=== PATIENT | female | born 1955 | race African-American/Black ===

== ENCOUNTER 2019-01-28 12:12 | Inpatient (IN) ==
[2019-01-28 12:59] LABS: Mean Corpuscular HGB Conc 29.6 g/dL (31.6-35.5); Mean Corpuscular Volume 87.7 fL (83.0-100.0)
[2019-01-28 13:07] LABS: Hematocrit 41.5 % (35.3-44.9); Hemoglobin 12.3 g/dL (11.5-15.4); Immature Platelets 2.7 % (1.1-6.1); Mean Platelet Volume 10.5 fL (9.4-12.4); Platelet Count 225 K/mcL (140-400); Red Blood Count 4.73 M/mcL (3.82-4.97); Red Cell Distribution Width 16.5 % (11.5-14.5); White Blood Count 16.5 K/mcL (4.3-11.1)
[2019-01-28 13:18] LABS: Calcium 9.1 mg/dL (8.6-10.3); Potassium 4.1 mEq/L (3.5-5.1)
[2019-01-28 13:26] LABS: Troponin I 0.04 ng/mL (< 0.04)
[2019-01-28 13:52] LABS: Eosinophils # 0.2 K/mcL (0.0-0.6); Lymphocytes # 0.7 K/mcL (0.6-4.6); Neutrophils # 15.7 K/mcL (1.6-8.9); Platelet Estimate Normal (Normal)
[2019-01-28 14:26] LABS: Bilirubin,Urine Negative (Negative); Blood,Urine Moderate (Negative); Color,Urine Yellow (Yellow); Glucose,Urine (UA) Normal (Normal); Ketones,Urine Negative (Negative); Leukocyte Esterase,Urine Moderate (Negative); Nitrite,Urine Negative (Negative); Protein,Urine 100 mg/dL (Neg-Trace); Specific Gravity,Urine 1.015 (1.010-1.025); Urobilinogen,Urine Normal (Normal)
[2019-01-28 14:27] LABS: Bacteria,Urine Moderate per hpf (None-Few); Squamous Epithelial Cell,Urine Many per lpf (None-Few)
[2019-01-28 14:30] LABS: Clarity,Urine Hazy (Clear)
[2019-01-28] MEDS ORDERED: cefTRIAXone 1,000 MG in 0.9 % Sodium Chloride Mini Bag 100 ML IVPB ONE (14:39)
[2019-01-28] MEDS ORDERED: 0.9 % Sodium Chloride 1,000 ML IVC ONE ×2 (14:44→14:45)
[2019-01-28 15:10] LABS: RBC,Urine 0-3 per hpf (0-3); WBC,Urine 30-50 per hpf (0-3)
[2019-01-28] MEDS ORDERED: Lidocaine -MPF 1% 5 ML AMPUL INFILT ONE (15:46)
[2019-01-28 16:07] LABS: Albumin 3.7 g/dL (3.5-5.7); Bilirubin,Direct 0.4 mg/dL (0.0-0.2); Bilirubin,Indirect 0.7 mg/dL (0.0-1.2); Bilirubin,Total 1.1 mg/dL (0.3-1.0); Globulin 3.7 g/dL (2.4-3.5); Total Protein 7.4 g/dL (6.4-8.9)
[2019-01-28] MEDS ORDERED: Mirtazapine 15 MG TABLET PO SCH (21:00)
[2019-01-28 21:03] LABS: Heparin anti-factor XA UFH 0.01 IU/mL (0.30-0.70); INR 1.5; Prothrombin Time 16.5 Seconds (9.4-12.1)
[2019-01-28 21:06] LABS: Activated Partial Thrombo Time 29.4 Seconds (26.0-36.0)
[2019-01-28] MEDS ORDERED: Acetaminophen 325 MG TABLET PO PRN (21:52)
[2019-01-28 23:14] LABS: Enterococcus by PCR Not Detected (Not Detect); Staphylococcus aureus by PCR Not Detected (Not Detect); Staphylococcus by PCR Not Detected (Not Detect); Streptococcus agalactiae(B)PCR Not Detected (Not Detect); Streptococcus by PCR Not Detected (Not Detect); Streptococcus pneumoniae PCR Not Detected (Not Detect); blaKPC Carbapenem-Resist Gene Not Detected (Not Detect)
[2019-01-28 23:15] LABS: Acinetobacter baumannii by PCR Not Detected (Not Detect); Candida albicans by PCR Not Detected (Not Detect); Candida glabrata by PCR Not Detected (Not Detect); Candida krusei by PCR Not Detected (Not Detect); Candida parapsilosis by PCR Not Detected (Not Detect); Candida tropicalis by PCR Not Detected (Not Detect); Enterobacter cloacae Cmplx PCR Not Detected (Not Detect); Escherichia coli by PCR DETECTED (Not Detect); Klebsiella oxytoca by PCR Not Detected (Not Detect); Klebsiella pneumoniae by PCR Not Detected (Not Detect); Proteus by PCR Not Detected (Not Detect); Pseudomonas aeruginosa by PCR Not Detected (Not Detect); Serratia marcescens by PCR Not Detected (Not Detect); Streptococcus pyogenes (A) PCR Not Detected (Not Detect)
[2019-01-29] MEDS ORDERED: Albumin 25% 25gram/100mL 25 GM/100 ML IV.SOLN IVPB ONE (04:28)
[2019-01-29] MEDS: *HR* Heparin 5,000 UNIT/ML VIAL SQ SCH ×2 (04:56→17:30)
[2019-01-29] MEDS ORDERED: Ondansetron 4 MG/2 ML VIAL ONE (07:12)
[2019-01-29] MEDS ORDERED: Ondansetron 4 MG/2 ML VIAL IVP ONE (07:16)
[2019-01-29] MEDS: Cholecalciferol (D-3) 1,000 UNIT (25MCG) TABLET PO SCH (07:52)
[2019-01-29] MEDS: Aspirin 325 MG TABLET PO SCH (07:52)
[2019-01-29] MEDS: Multivit/Ca/Min/Fe/FA 1 TAB TABLET PO SCH (07:52)
[2019-01-29] MEDS ORDERED: carvediloL 25 MG TABLET PO SCH (08:00)
[2019-01-29] MEDS ORDERED: Albumin 25% 25gram/100mL 100 GM/400 ML IV.SOLN ONE (09:00)
[2019-01-29] MEDS ORDERED: NON-FORMULARY MEDICATION 1 EACH EACH (Pravastatin Sodium [Pravachol] 40 MG) PO SCH (09:00)
[2019-01-29] MEDS ORDERED: Lisinopril 20 MG TABLET PO SCH (09:00)
[2019-01-29] MEDS ORDERED: cefTRIAXone 2,000 MG in Water for inj. (sterile) 20 ML IVP SCH (09:00)
[2019-01-29] MEDS ORDERED: Ringers Solution, Lactated 1,000 ML ONE (09:07)
[2019-01-29] MEDS ORDERED: Ringers Solution, Lactated 1,000 ML IVC ONE (09:09)
[2019-01-29] MEDS: Albumin 25% 25gram/100mL 25 GM/100 ML IV.SOLN IVPB SCH ×4 (09:14→09:33)
[2019-01-29] MEDS: Norepinephrine 4 MG in D5% in Water 250 ML IVC SCH ×3 (09:49→17:31)
[2019-01-29 10:02] LABS: Mean Platelet Volume 10.7 fL (9.4-12.4); Red Cell Distribution Width 16.9 % (11.5-14.5)
[2019-01-29 10:03] LABS: Hematocrit 29.9 % (35.3-44.9); Hemoglobin 8.9 g/dL (11.5-15.4); Mean Corpuscular HGB Conc 29.8 g/dL (31.6-35.5); Mean Corpuscular Hemoglobin 26.3 pg (28.0-33.3); Mean Corpuscular Volume 88.5 fL (83.0-100.0); Platelet Count 163 K/mcL (140-400); Red Blood Count 3.38 M/mcL (3.82-4.97); White Blood Count 29.3 K/mcL (4.3-11.1)
[2019-01-29 10:23] LABS: Calcium 8.5 mg/dL (8.6-10.3); Potassium 3.3 mEq/L (3.5-5.1)
[2019-01-29 10:32] LABS: Troponin I 0.05 ng/mL (< 0.04)
[2019-01-29] MEDS ORDERED: 0.9 % Sodium Chloride 1,000 ML ONE (10:36)
[2019-01-29 10:39] LABS: Lymphocytes # 0.6 K/mcL (0.6-4.6); Monocytes # 2.3 K/mcL (0.0-1.3); Neutrophils # 25.8 K/mcL (1.6-8.9); Platelet Estimate Normal (Normal)
[2019-01-29] MEDS: Hydrocortisone Sodium Succ 100 MG/2 ML VIAL IVP SCH ×3 (11:47→23:13)
[2019-01-29] MEDS: Vasopressin 40 UNIT in D5% in Water 100 ML IV SCH (12:05)
[2019-01-29] MEDS ORDERED: Perflutren Lipid Microsphere 1.3 ML in 0.9 % Sodium Chloride 8.7 ML IVP ONE (14:03)
[2019-01-29] MEDS: Mirtazapine 15 MG TABLET PO SCH (20:56)
[2019-01-30 04:54] LABS: Red Cell Distribution Width 17.1 % (11.5-14.5)
[2019-01-30 04:56] LABS: Hematocrit 34.2 % (35.3-44.9); Hemoglobin 10.2 g/dL (11.5-15.4); Mean Corpuscular HGB Conc 29.8 g/dL (31.6-35.5); Mean Corpuscular Hemoglobin 26.6 pg (28.0-33.3); Mean Corpuscular Volume 89.3 fL (83.0-100.0); Mean Platelet Volume 10.6 fL (9.4-12.4); Platelet Count 163 K/mcL (140-400); Red Blood Count 3.83 M/mcL (3.82-4.97)
[2019-01-30 05:08] LABS: ABG Base Excess -4 mEq/L (-2 to 3); ABG HCO3 25 mEq/L (21-27); ABG Oxygen Saturation 95 % (95-98); ABG PCO2 61 mmHg (35-45); ABG PH 7.22 pH Units (7.32-7.45); ABG PO2 94 mmHg (85-104); ABG TCO2 27 mEq/L (20-26)
[2019-01-30] MEDS: *HR* Heparin 5,000 UNIT/ML VIAL SQ SCH ×2 (05:17→18:19)
[2019-01-30] MEDS: Hydrocortisone Sodium Succ 100 MG/2 ML VIAL IVP SCH ×3 (05:18→18:23)
[2019-01-30 05:23] LABS: Albumin 4.1 g/dL (3.5-5.7); Albumin/Globulin Ratio 1.3 (1.1-2.2); Bilirubin,Total 0.6 mg/dL (0.3-1.0); Calcium 8.4 mg/dL (8.6-10.3); Globulin 3.2 g/dL (2.4-3.5); Potassium 4.7 mEq/L (3.5-5.1); Total Protein 7.3 g/dL (6.4-8.9)
[2019-01-30 05:31] LABS: Lymphocytes # 0.6 K/mcL (0.6-4.6); Monocytes # 1.2 K/mcL (0.0-1.3); Neutrophils # 28.2 K/mcL (1.6-8.9); Platelet Estimate Normal (Normal)
[2019-01-30] MEDS ORDERED: Cefepime HCl 2,000 MG in Water for inj. (sterile) 20 ML IVP SCH (06:00)
[2019-01-30 09:35] LABS: ABG Base Excess -3 mEq/L (-2 to 3); ABG HCO3 25 mEq/L (21-27); ABG Oxygen Saturation 99 % (95-98); ABG PCO2 59 mmHg (35-45); ABG PH 7.24 pH Units (7.32-7.45); ABG PO2 183 mmHg (85-104); ABG TCO2 27 mEq/L (20-26); Blood Gas Modality AVAPS; Blood Gas VT 500 cc
[2019-01-30] MEDS: Cholecalciferol (D-3) 1,000 UNIT (25MCG) TABLET PO SCH (09:49)
[2019-01-30] MEDS: Multivit/Ca/Min/Fe/FA 1 TAB TABLET PO SCH (09:49)
[2019-01-30] MEDS: Aspirin 325 MG TABLET PO SCH (09:49)
[2019-01-30] MEDS: Vasopressin 40 UNIT in D5% in Water 100 ML IV SCH (09:50)
[2019-01-30 11:32] LABS: Complement C3 134 mg/dL (87-200)
[2019-01-30 11:33] LABS: Uric Acid 9.8 mg/dL (2.3-7.6)
[2019-01-30] MEDS: Mirtazapine 15 MG TABLET PO SCH (20:14)
[2019-01-31] MEDS ORDERED: Ondansetron 4 MG/2 ML VIAL IVP ONE (03:17)
[2019-01-31 04:43] LABS: Hemoglobin 10.4 g/dL (11.5-15.4); Mean Corpuscular HGB Conc 30.1 g/dL (31.6-35.5)
[2019-01-31 04:44] LABS: Hematocrit 34.6 % (35.3-44.9); Mean Corpuscular Hemoglobin 26.4 pg (28.0-33.3); Mean Corpuscular Volume 87.8 fL (83.0-100.0); Mean Platelet Volume 11.2 fL (9.4-12.4); Platelet Count 150 K/mcL (140-400); Red Blood Count 3.94 M/mcL (3.82-4.97); Red Cell Distribution Width 16.8 % (11.5-14.5)
[2019-01-31 04:48] LABS: Albumin 3.7 g/dL (3.5-5.7); Calcium 8.6 mg/dL (8.6-10.3); Magnesium 2.3 mg/dL (1.6-2.6); Potassium 4.3 mEq/L (3.5-5.1)
[2019-01-31 05:04] LABS: White Blood Count 34.7 K/mcL (4.3-11.1)
[2019-01-31] MEDS: *HR* Heparin 5,000 UNIT/ML VIAL SQ SCH ×2 (05:52→17:49)
[2019-01-31] MEDS ORDERED: Cefepime HCl 2,000 MG in Water for inj. (sterile) 20 ML IVP SCH (06:00)
[2019-01-31] MEDS: Vasopressin 40 UNIT in D5% in Water 100 ML IV SCH (06:04)
[2019-01-31 06:33] LABS: Lymphocytes # 2.8 K/mcL (0.6-4.6); Monocytes # 2.1 K/mcL (0.0-1.3); Neutrophils # 29.8 K/mcL (1.6-8.9); Platelet Estimate Normal (Normal)
[2019-01-31] MEDS: Cholecalciferol (D-3) 1,000 UNIT (25MCG) TABLET PO SCH (08:47)
[2019-01-31] MEDS: Multivit/Ca/Min/Fe/FA 1 TAB TABLET PO SCH (08:47)
[2019-01-31] MEDS: Aspirin 325 MG TABLET PO SCH (08:47)
[2019-01-31] MEDS ORDERED: Ondansetron 4 MG/2 ML VIAL ONE (13:46)
[2019-01-31] MEDS ORDERED: Ondansetron 4 MG/2 ML VIAL IVP PRN ×2 (14:05→15:20)
[2019-01-31] MEDS ORDERED: *HR* Promethazine 25 MG/ML VIAL ONE (14:24)
[2019-01-31] MEDS ORDERED: *HR* Promethazine 25 MG/ML VIAL IVP PRN (14:25)
[2019-01-31] MEDS ORDERED: Acetaminophen 325 MG TABLET PO PRN (15:20)
[2019-01-31] MEDS: Mirtazapine 15 MG TABLET PO SCH (19:59)
[2019-02-01 03:49] LABS: Basophils % 0.1 %; Eosinophils # 0.2 K/mcL (0.0-0.6); Eosinophils % 0.7 %; Hematocrit 36.9 % (35.3-44.9); Hemoglobin 11.3 g/dL (11.5-15.4); Immature Granulocytes % 1.3 % (0-4); Lymphocytes # 2.2 K/mcL (0.6-4.6); Lymphocytes % 9.7 %; Mean Corpuscular HGB Conc 30.6 g/dL (31.6-35.5); Mean Corpuscular Hemoglobin 25.8 pg (28.0-33.3); Mean Corpuscular Volume 84.2 fL (83.0-100.0); Mean Platelet Volume 11.1 fL (9.4-12.4); Monocytes # 2.1 K/mcL (0.0-1.3); Monocytes % 9.3 %; Platelet Count 161 K/mcL (140-400); Red Blood Count 4.38 M/mcL (3.82-4.97); Red Cell Distribution Width 16.8 % (11.5-14.5); Segmented Neutrophils % 78.9 %; White Blood Count 22.8 K/mcL (4.3-11.1)
[2019-02-01 03:57] LABS: Calcium 9.2 mg/dL (8.6-10.3); Potassium 4.1 mEq/L (3.5-5.1)
[2019-02-01] MEDS: *HR* Heparin 5,000 UNIT/ML VIAL SQ SCH ×2 (05:16→17:42)
[2019-02-01] MEDS: Cefepime HCl 2,000 MG in Water for inj. (sterile) 20 ML IVP SCH ×2 (05:17→13:57)
[2019-02-01] MEDS: Multivit/Ca/Min/Fe/FA 1 TAB TABLET PO SCH (09:20)
[2019-02-01] MEDS: Aspirin 325 MG TABLET PO SCH (09:20)
[2019-02-01] MEDS: Cholecalciferol (D-3) 1,000 UNIT (25MCG) TABLET PO SCH (09:21)
[2019-02-01] MEDS: cefTRIAXone 2,000 MG in Water for inj. (sterile) 20 ML IVP SCH (12:15)
[2019-02-01] MEDS ORDERED: Cefepime HCl 2,000 MG in Water for inj. (sterile) 20 ML IVP SCH (18:00)
[2019-02-01 18:43] LABS: Kappa Qnt Free Light Chains 4.99 mg/dL (0.33-1.94); Lambda Qnt Free Light Chains 2.14 mg/dL (0.57-2.63)
[2019-02-01 19:00] LABS: Urine Collection Volume RANDOM mL
[2019-02-01] MEDS: Mirtazapine 15 MG TABLET PO SCH (20:48)
[2019-02-02] MEDS: *HR* Heparin 5,000 UNIT/ML VIAL SQ SCH (04:42)
[2019-02-02 05:12] LABS: Hematocrit 37.5 % (35.3-44.9); Hemoglobin 11.4 g/dL (11.5-15.4); Mean Corpuscular HGB Conc 30.4 g/dL (31.6-35.5); Mean Corpuscular Hemoglobin 25.9 pg (28.0-33.3); Mean Corpuscular Volume 85.2 fL (83.0-100.0); Mean Platelet Volume 10.9 fL (9.4-12.4); Platelet Count 172 K/mcL (140-400); Red Cell Distribution Width 17.1 % (11.5-14.5); White Blood Count 16.7 K/mcL (4.3-11.1)
[2019-02-02 05:29] LABS: Calcium 9.1 mg/dL (8.6-10.3); Potassium 4.2 mEq/L (3.5-5.1)
[2019-02-02 05:36] LABS: Anisocytosis 1+ (Not Present); Lymphocytes # 5.7 K/mcL (0.6-4.6); Monocytes # 2.3 K/mcL (0.0-1.3); Neutrophils # 8.4 K/mcL (1.6-8.9); Platelet Estimate Normal (Normal); Smudge Cells Present (Not Present)
[2019-02-02] MEDS ORDERED: carvediloL 25 MG TABLET PO SCH (08:00)
[2019-02-02 08:56] LABS: Alpha 2 Globulin (PEP) 0.95 g/dL (0.48-1.05); Beta Globulin (PEP) 0.95 g/dL (0.48-1.10)
[2019-02-02] MEDS: Multivit/Ca/Min/Fe/FA 1 TAB TABLET PO SCH (08:58)
[2019-02-02] MEDS: Cholecalciferol (D-3) 1,000 UNIT (25MCG) TABLET PO SCH (08:58)
[2019-02-02] MEDS: cefTRIAXone 2,000 MG in Water for inj. (sterile) 20 ML IVP SCH (08:58)
[2019-02-02] MEDS: Aspirin 325 MG TABLET PO SCH (08:59)
[2019-02-02 09:40] LABS: ANA IgG by ELISA DETECTED (None Detected); Serine Protease-3 Antibody 1 AU/mL (0-19)
[2019-02-02 09:57] LABS: IFE Reflexed NOT DONE
[2019-02-02 10:49] VITALS: BP 125/73
[2019-02-03 17:12] LABS: ANA HEp-2 IgG IFA DETECTED (<1:80); Anti Nuclear Ab Pattern NUCLEAR DOT
== END 2019-02-02 14:49 | disposition home or self-care (01) | DRG 871 ==
LOC: EMEROOARM 12:12 → ICNU 19:57 → 2ANU 01-31 15:40
PROVIDERS: ADMIT Family Medicine; ATTEND Family Medicine

== ENCOUNTER 2019-08-29 20:07 | Observation (INO) ==
[2019-08-29 20:59] LABS: Basophils # 0.1 K/mcL (0.0-0.2); Basophils % 0.5 %; Eosinophils # 0.2 K/mcL (0.0-0.6); Eosinophils % 2.1 %; Hematocrit 41.6 % (35.3-44.9); Hemoglobin 12.4 g/dL (11.5-15.4); Immature Granulocytes % 0.5 % (0-4); Lymphocytes # 3.4 K/mcL (0.6-4.6); Lymphocytes % 33.9 %; Mean Corpuscular HGB Conc 29.8 g/dL (31.6-35.5); Mean Corpuscular Hemoglobin 25.6 pg (28.0-33.3); Mean Platelet Volume 10.1 fL (9.4-12.4); Monocytes # 0.5 K/mcL (0.0-1.3); Monocytes % 4.8 %; Neutrophils # 5.9 K/mcL (1.6-8.9); Platelet Count 334 K/mcL (140-400); Red Blood Count 4.84 M/mcL (3.82-4.97); Red Cell Distribution Width 16.4 % (11.5-14.5); Segmented Neutrophils % 58.2 %; White Blood Count 10.1 K/mcL (4.3-11.1)
[2019-08-29 21:15] LABS: INR 1.1; Prothrombin Time 12.9 Seconds (9.4-12.1)
[2019-08-29 21:17] LABS: Activated Partial Thrombo Time 30.8 Seconds (26.0-36.0)
[2019-08-29 21:20] LABS: BUN/Creatinine Ratio 19 (6-26); Blood Urea Nitrogen 19 mg/dL (8-23); Calcium 9.8 mg/dL (8.6-10.3); Carbon Dioxide 28 mEq/L (23-29); Chloride 103 mEq/L (98-107); Glucose 102 mg/dL (70-105); Osmolality,Calculated 288 (280-300); Potassium 4.1 mEq/L (3.5-5.1); Sodium 138 mEq/L (136-145); eGFR For African Americans > 60 (> 60); eGFR For Non-African Americans 56 (> 60)
[2019-08-29 21:21] LABS: Troponin I < 0.03 ng/mL (< 0.04)
[2019-08-29] MEDS ORDERED: Piperacillin/Tazobactam 3.375 GM in Water for inj. (sterile) 20 ML IVP ONE (21:28)
[2019-08-29] MEDS ORDERED: Acetaminophen 325 MG TABLET PO PRN (22:27)
[2019-08-29] MEDS ORDERED: Ondansetron 4 MG/2 ML VIAL IVP PRN (22:27)
[2019-08-29] MEDS ORDERED: Naloxone 0.4 MG/ML INJ IVP PRN (22:27)
[2019-08-30 02:31] LABS: Basophils # 0.1 K/mcL (0.0-0.2); Basophils % 0.5 %; Eosinophils # 0.2 K/mcL (0.0-0.6); Eosinophils % 2.1 %; Hematocrit 41.8 % (35.3-44.9); Hemoglobin 12.2 g/dL (11.5-15.4); Immature Granulocytes % 0.2 % (0-4); Lymphocytes # 3.4 K/mcL (0.6-4.6); Lymphocytes % 35.5 %; Mean Corpuscular HGB Conc 29.2 g/dL (31.6-35.5); Mean Corpuscular Hemoglobin 25.8 pg (28.0-33.3); Mean Corpuscular Volume 88.4 fL (83.0-100.0); Mean Platelet Volume 11.4 fL (9.4-12.4); Monocytes # 0.6 K/mcL (0.0-1.3); Monocytes % 6.7 %; Neutrophils # 5.2 K/mcL (1.6-8.9); Platelet Count 244 K/mcL (140-400); Red Blood Count 4.73 M/mcL (3.82-4.97); Red Cell Distribution Width 16.5 % (11.5-14.5); White Blood Count 9.5 K/mcL (4.3-11.1)
[2019-08-30 02:50] LABS: BUN/Creatinine Ratio 17 (6-26); Blood Urea Nitrogen 17 mg/dL (8-23); Carbon Dioxide 21 mEq/L (23-29); Chloride 106 mEq/L (98-107); Glucose 145 mg/dL (70-105); Magnesium 2.1 mg/dL (1.6-2.6); Osmolality,Calculated 286 (280-300); Potassium 3.7 mEq/L (3.5-5.1); Sodium 136 mEq/L (136-145); eGFR For African Americans > 60 (> 60); eGFR For Non-African Americans 56 (> 60)
[2019-08-30] MEDS ORDERED: *HR* Heparin 5,000 UNIT/ML VIAL SQ SCH (06:00)
[2019-08-30] MEDS ORDERED: Piperacillin/Tazobactam 3.375 GM in 0.9 % Sodium Chloride Mini Bag 100 ML IVPB SCH (08:00)
[2019-08-30] MEDS ORDERED: carvediloL 25 MG TABLET PO SCH (08:00)
[2019-08-30] MEDS ORDERED: Lactobacillus 1 EACH CAP.SPRINK PO SCH (09:00)
[2019-08-30] MEDS ORDERED: Cholecalciferol (D-3) 1,000 UNIT (25MCG) TABLET PO SCH (09:00)
[2019-08-30] MEDS ORDERED: lisinopriL 10 MG TABLET PO SCH (09:00)
[2019-08-30] MEDS ORDERED: Multivit/Ca/Min/Fe/FA 1 TAB TABLET PO SCH (09:00)
[2019-08-30] MEDS ORDERED: Aspirin 325 MG TABLET PO SCH (09:00)
[2019-08-30 11:09] VITALS: BP 93/65
[2019-08-30] MEDS ORDERED: Aminoglycoside Consult 1 EACH MC ONE (13:24)
[2019-08-30] MEDS ORDERED: Mirtazapine 15 MG TABLET PO SCH (21:00)
== END 2019-08-30 13:25 | disposition other institution (70) ==
LOC: SUATTDRO → 3BNU 20:07 → EMEROOARM 20:07 → SUATTDRO 22:46 → 3BNU 23:13
PROVIDERS: ADMIT Pharmacist; ATTEND Internal Medicine

== ENCOUNTER 2022-02-06 08:22 | Observation (INO) ==
[2022-02-06 10:19] LABS: Basophils % 0.3 %; Eosinophils # 0.2 K/mcL (0.0-0.6); Eosinophils % 2.2 %; Hematocrit 40.7 % (35.3-44.9); Hemoglobin 12.4 g/dL (11.5-15.4); Immature Granulocytes % 0.3 % (0-4); Lymphocytes # 2.1 K/mcL (0.6-4.6); Lymphocytes % 23.8 %; Mean Corpuscular HGB Conc 30.5 g/dL (31.6-35.5); Mean Corpuscular Volume 88.7 fL (83.0-100.0); Mean Platelet Volume 9.9 fL (9.4-12.4); Monocytes # 0.6 K/mcL (0.0-1.3); Monocytes % 6.6 %; Neutrophils # 5.9 K/mcL (1.6-8.9); Platelet Count 233 K/mcL (140-400); Red Blood Count 4.59 M/mcL (3.82-4.97); Red Cell Distribution Width 15.8 % (11.5-14.5); Segmented Neutrophils % 66.8 %; White Blood Count 8.8 K/mcL (4.3-11.1)
[2022-02-06 10:39] LABS: BUN/Creatinine Ratio 17 (6-26); Blood Urea Nitrogen 12 mg/dL (8-23); Calcium 8.6 mg/dL (8.6-10.3); Carbon Dioxide 32 mEq/L (23-29); Chloride 101 mEq/L (98-107); Glucose 111 mg/dL (70-105); Osmolality,Calculated 286 (280-300); Sodium 138 mEq/L (136-145)
[2022-02-06 10:40] LABS: Troponin I < 0.03 ng/mL (< 0.04)
[2022-02-06] MEDS ORDERED: Iopamidol - 370 500 ML MLS IVP ONE ×2 (11:21→11:24)
[2022-02-06] MEDS ORDERED: *HR* Heparin 5,000 UNIT/ML VIAL IVP ONE (14:33)
[2022-02-06] MEDS ORDERED: *HR* Heparin 5,000 UNIT/ML VIAL IVP PRN ×2 (14:33)
[2022-02-06] MEDS ORDERED: Naloxone 0.4 MG/ML INJ IVP PRN (15:04)
[2022-02-06] MEDS ORDERED: Melatonin 3 MG TABLET PO PRN (15:04)
[2022-02-06 15:34] LABS: Heparin anti-factor XA UFH < 0.04 IU/mL (0.30-0.70)
[2022-02-06 15:36] LABS: Activated Partial Thrombo Time 30.9 Seconds (26.0-36.0)
[2022-02-06] MEDS: Heparin 25,000UNIT/250ML 1/2NS 25,000 UNIT/250 ML IV.SOLN IVC SCH (15:48)
[2022-02-06] MEDS ORDERED: Acetaminophen 325 MG TABLET PO ONE (22:11)
[2022-02-06] MEDS ORDERED: Acetaminophen 325 MG TABLET PO PRN (22:13)
[2022-02-07 03:50] LABS: Basophils # 0.1 K/mcL (0.0-0.2); Basophils % 0.6 %; Eosinophils # 0.3 K/mcL (0.0-0.6); Eosinophils % 2.7 %; Hematocrit 37.6 % (35.3-44.9); Hemoglobin 11.4 g/dL (11.5-15.4); Immature Granulocytes % 0.3 % (0-4); Lymphocytes # 3.3 K/mcL (0.6-4.6); Lymphocytes % 32.6 %; Mean Corpuscular HGB Conc 30.3 g/dL (31.6-35.5); Mean Corpuscular Hemoglobin 26.6 pg (28.0-33.3); Mean Corpuscular Volume 87.6 fL (83.0-100.0); Mean Platelet Volume 10.1 fL (9.4-12.4); Monocytes # 0.7 K/mcL (0.0-1.3); Neutrophils # 5.7 K/mcL (1.6-8.9); Platelet Count 253 K/mcL (140-400); Red Blood Count 4.29 M/mcL (3.82-4.97); Red Cell Distribution Width 15.8 % (11.5-14.5); Segmented Neutrophils % 56.8 %; White Blood Count 10.1 K/mcL (4.3-11.1)
[2022-02-07 04:15] LABS: Calcium 8.3 mg/dL (8.6-10.3); Potassium 3.5 mEq/L (3.5-5.1)
[2022-02-07] MEDS: Heparin 25,000UNIT/250ML 1/2NS 25,000 UNIT/250 ML IV.SOLN IVC SCH ×2 (05:53→09:15)
[2022-02-07] MEDS ORDERED: carvediloL 25 MG TABLET PO SCH (09:00)
[2022-02-07] MEDS ORDERED: Aspirin 325 MG TABLET PO SCH (09:00)
[2022-02-07] MEDS ORDERED: *HR* Rivaroxaban 15 MG TABLET PO SCH (09:45)
[2022-02-07 11:34] VITALS: BP 126/83; PULSE 85; TEMP 98; O2SAT 95
== END 2022-02-07 12:07 | disposition home or self-care (01) ==
LOC: 3ANU 08:22 → EMEROOARM 08:22 → 3ANU 16:13
PROVIDERS: ADMIT Internal Medicine; ATTEND Internal Medicine